=== PATIENT | male | born 1945 | race African-American/Black ===

== ENCOUNTER 2016-12-17 09:09 | Inpatient (IN) ==
[2016-12-17] MEDS ORDERED: ONDANSETRON 4 MG/2 ML VIAL IV STA (09:39)
[2016-12-17] MEDS ORDERED: SODIUM CHLORIDE 0.9% 500 ML IV STA (09:39)
[2016-12-17] MEDS ORDERED: NITROGLYCERIN 2% OINT 1 INCH/GM PACK TOP STA (09:39)
[2016-12-17] MEDS ORDERED: MORPHINE 2 MG/1 ML SYRINGE IV STA (09:39)
[2016-12-17] MEDS ORDERED: ALUM/MAG/SIMETH/LIDO VISC 1:1 30 ML BOTTLE PO STA (09:39)
[2016-12-17] MEDS ORDERED: METOPROLOL TARTRATE 25 MG TABLET PO STA (09:39)
[2016-12-17 10:05] LABS: Basophils % 0.4 % (0.0-0.8); Eosinophils # 0.2 10*3/uL (0.0-0.87); Eosinophils % 2.5 % (0.00-10.9); Hematocrit 19.5 VOL% (42.0-52.0); Immature Granulocytes % 0.4 %; Immature Granulocytes Absolute 0.03 #; Lymphocytes # 1.1 10*3/uL (1.4-4.0); Lymphocytes % 16.6 % (21.2-54.2); Mean Corpuscular HGB Conc 28.2 GM/DL (32-36); Mean Corpuscular Hemoglobin 19 PG (27-34); Mean Corpuscular Volume 65.7 FL (87-102); Mean Platelet Volume 10.4 FL (9.6-12.0); Monocytes # 0.6 10*3/uL (0.11-0.8); Neutrophils # 4.7 10*3/uL (1.4-7.4); Neutrophils % 71.1 % (38.7-73.9); Platelet Count 244 T/CUMM (130-400); Red Blood Count 2.97 MC/CUMM (3.8-5.5); Red Cell Distribution Width 17.1 % (9.3-17.3); White Blood Count 6.7 T/CUMM (4-12)
[2016-12-17 10:10] LABS: Hemoglobin 5.5 GM/DL (14.0-18.0)
[2016-12-17] MEDS ORDERED: PANTOPRAZOLE 40 MG VIAL IV STA (10:11)
[2016-12-17 10:16] LABS: PT Patient Result 10.7 SECS
[2016-12-17 10:27] LABS: Anisocytosis 3+; Poikilocytosis 2+
[2016-12-17] MEDS ORDERED: MORPHINE 2 MG/1 ML SYRINGE ONE (10:27)
[2016-12-17] MEDS ORDERED: PANTOPRAZOLE 40 MG VIAL IV ONE (10:27)
[2016-12-17] MEDS ORDERED: ONDANSETRON 4 MG/2 ML VIAL ONE (10:27)
[2016-12-17 10:28] LABS: Hypochromasia 3+
[2016-12-17] MEDS ORDERED: ALUM/MAG/SIMETH/LIDO VISC 1:1 30 ML BOTTLE PO ONE (10:28)
[2016-12-17 10:29] LABS: Ovalocytes 2+; Polychromasia Slight
[2016-12-17 10:40] LABS: Albumin 3.3 G/DL (3.4-5.0); Bilirubin,Total 0.4 MG/DL (0.2-1.0); Calcium 8.9 MG/DL (8.5-10.1); Magnesium 2.1 MG/DL (1.8-2.4); Osmolality,Calculated 277.7 MOS/KG (273-304); Potassium 3.1 MMOL/L (3.5-5.1); Total Protein 7.5 G/DL (6.4-8.3)
[2016-12-17] MEDS ORDERED: POTASSIUM CHLORIDE 20 MEQ TABLET PO STA (10:52)
[2016-12-17 10:54] LABS: Apearance,Urine Slightly Hazy (Clear); Bilirubin,Urine Negative (Negative); Blood, Urine Negative (Negative); Glucose,Urine (UA) Negative (Negative); Hyaline Casts,Urine 2 /LPF (0-3); Ketones,Urine Negative (Negative); Mucus,Urine Occasional /LPF (Occasional); Nitrite,Urine Negative (Negative); Protein,Urine Negative; RBC,Urine <1 /HPF (0-4); Squamous Epithelial Cell,Urine Occasional /HPF (0-10); Urine Color Yellow (Yellow); Urine Specific Gravity 1.014 (1.001-1.035); Urine Urobilinogen < 2.0 EU/DL (0.2-1.0); WBC,Urine 1 /HPF (0-6)
[2016-12-17] MEDS ORDERED: POTASSIUM CHLORIDE 20 MEQ TABLET PO ONE (11:41)
[2016-12-17] MEDS ORDERED: SODIUM CHLORIDE 0.9% 250 ML IV PRN (13:30)
[2016-12-17] MEDS ORDERED: DEXTROSE 50% 25 GM/50 ML VIAL IV PRN (14:44)
[2016-12-17] MEDS ORDERED: GLUCAGON 1 MG VIAL IM PRN (14:44)
[2016-12-17 15:02] LABS: Hemoglobin 5.3 GM/DL (14.0-18.0)
[2016-12-17] MEDS: SODIUM CHLORIDE 0.9% 1,000 ML IV SCH (15:20)
[2016-12-17] MEDS: POTASSIUM CHLORIDE 20 MEQ TABLET PO PRN ×2 (15:35→18:03)
[2016-12-17] MEDS: INSULIN REGULAR 100 UNIT/ML SUBCUT SCH ×2 (16:04→21:24)
[2016-12-17 16:57] LABS: Risk Ratio 2.57; VLDL CHOLESTEROL 14.6 MG/DL
[2016-12-17] MEDS: PANTOPRAZOLE INJ 200 MG in SODIUM CHLORIDE 0.9% 250 ML IV SCH (17:34)
[2016-12-17 20:01] LABS: Hematocrit 20.4 VOL% (42.0-52.0)
[2016-12-17 20:02] LABS: Hemoglobin 5.9 GM/DL (14.0-18.0)
[2016-12-17] MEDS: AMITRIPTYLINE 25 MG TABLET PO SCH (22:50)
[2016-12-17] MEDS: DONEPEZIL 5 MG TABLET PO SCH (22:51)
[2016-12-18 00:49] LABS: Basophils % 0.3 % (0.0-0.8); Eosinophils # 0.2 10*3/uL (0.0-0.87); Eosinophils % 2.7 % (0.00-10.9); Hematocrit 21.7 VOL% (42.0-52.0); Hemoglobin 6.6 GM/DL (14.0-18.0); Immature Granulocytes % 0.2 %; Immature Granulocytes Absolute 0.01 #; Lymphocytes # 1.6 10*3/uL (1.4-4.0); Lymphocytes % 26.2 % (21.2-54.2); Mean Corpuscular HGB Conc 30.4 GM/DL (32-36); Mean Corpuscular Hemoglobin 22 PG (27-34); Mean Corpuscular Volume 70.7 FL (87-102); Mean Platelet Volume 10.4 FL (9.6-12.0); Monocytes # 0.7 10*3/uL (0.11-0.8); Monocytes % 10.8 % (1.7-12.7); Neutrophils # 3.6 10*3/uL (1.4-7.4); Neutrophils % 59.8 % (38.7-73.9); Platelet Count 195 T/CUMM (130-400); Red Blood Count 3.07 MC/CUMM (3.8-5.5); Red Cell Distribution Width 22.3 % (9.3-17.3)
[2016-12-18 00:58] LABS: PT Patient Result 10.7 SECS
[2016-12-18 01:11] LABS: Calcium 8.1 MG/DL (8.5-10.1); Osmolality,Calculated 278.4 MOS/KG (273-304); Potassium 3.8 MMOL/L (3.5-5.1)
[2016-12-18] MEDS ORDERED: SODIUM CHLORIDE 0.9% 250 ML IV PRN ×2 (07:45→08:34)
[2016-12-18] MEDS ORDERED: FUROSEMIDE 20 MG/2 ML VIAL IV PRN (08:34)
[2016-12-18] MEDS: INSULIN REGULAR 100 UNIT/ML SUBCUT SCH ×4 (09:49→21:05)
[2016-12-18] MEDS: amLODIPine 5 MG TABLET PO SCH (10:45)
[2016-12-18] MEDS: LOSARTAN/HCTZ 50-12.5 MG TABLET PO SCH (10:45)
[2016-12-18] MEDS: LATANOPROST 0.005% OPH SOLN 2.5 ML BOTTLE BOTH EYES SCH (10:45)
[2016-12-18] MEDS: oxyCODONE/ACETAMINOPHEN 5-325 MG TABLET PO PRN (16:20)
[2016-12-18] MEDS: PANTOPRAZOLE INJ 200 MG in SODIUM CHLORIDE 0.9% 250 ML IV SCH (18:48)
[2016-12-18] MEDS: DONEPEZIL 5 MG TABLET PO SCH (21:03)
[2016-12-18] MEDS: AMITRIPTYLINE 25 MG TABLET PO SCH (21:04)
[2016-12-18 21:23] LABS: Hematocrit 28.7 VOL% (42.0-52.0); Hemoglobin 9.1 GM/DL (14.0-18.0)
[2016-12-18] MEDS: SODIUM CHLORIDE 0.9% 1,000 ML IV SCH (22:15)
[2016-12-19 04:03] LABS: Basophils % 0.6 % (0.0-0.8); Eosinophils # 0.2 10*3/uL (0.0-0.87); Eosinophils % 3.8 % (0.00-10.9); Hematocrit 28.4 VOL% (42.0-52.0); Immature Granulocytes % 0.6 %; Immature Granulocytes Absolute 0.04 #; Lymphocytes # 1.2 10*3/uL (1.4-4.0); Lymphocytes % 19.3 % (21.2-54.2); Mean Corpuscular HGB Conc 31.7 GM/DL (32-36); Mean Corpuscular Hemoglobin 23 PG (27-34); Mean Corpuscular Volume 72.1 FL (87-102); Mean Platelet Volume 10.4 FL (9.6-12.0); Monocytes # 0.8 10*3/uL (0.11-0.8); Monocytes % 12.7 % (1.7-12.7); Platelet Count 184 T/CUMM (130-400); Red Blood Count 3.94 MC/CUMM (3.8-5.5); Red Cell Distribution Width 21.7 % (9.3-17.3); White Blood Count 6.4 T/CUMM (4-12)
[2016-12-19 04:05] LABS: INR 1.1; PT Patient Result 11.3 SECS
[2016-12-19 04:24] LABS: Calcium 8.5 MG/DL (8.5-10.1); Osmolality,Calculated 276.4 MOS/KG (273-304); Potassium 3.4 MMOL/L (3.5-5.1)
[2016-12-19] MEDS ORDERED: LIDOCAINE 2% 5 ML VIAL ONE (09:00)
[2016-12-19] MEDS ORDERED: PROPOFOL 200 MG/20 ML VIAL IV ONE (09:00)
[2016-12-19] MEDS: INSULIN REGULAR 100 UNIT/ML SUBCUT SCH ×4 (09:07→21:02)
[2016-12-19] MEDS: LATANOPROST 0.005% OPH SOLN 2.5 ML BOTTLE BOTH EYES SCH (09:07)
[2016-12-19] MEDS: amLODIPine 5 MG TABLET PO SCH (09:07)
[2016-12-19] MEDS: LOSARTAN/HCTZ 50-12.5 MG TABLET PO SCH (09:07)
[2016-12-19] MEDS: SODIUM CHLORIDE 0.9% 1,000 ML IV SCH ×3 (09:11→22:28)
[2016-12-19] MEDS: oxyCODONE/ACETAMINOPHEN 5-325 MG TABLET PO PRN ×2 (14:38→21:01)
[2016-12-19] MEDS: PANTOPRAZOLE INJ 200 MG in SODIUM CHLORIDE 0.9% 250 ML IV SCH (16:40)
[2016-12-19] MEDS ORDERED: ASPIRIN CHEW 81 MG TABLET PO ONE (16:55)
[2016-12-19] MEDS ORDERED: POTASSIUM CHLORIDE 20 MEQ PACK PO ONE (17:01)
[2016-12-19] MEDS: HYOSCYAMINE 0.125 MG TABLET SL SCH ×2 (18:16→21:01)
[2016-12-19] MEDS: CARVEDILOL 3.125 MG TABLET PO SCH ×2 (18:16→21:01)
[2016-12-19] MEDS: POTASSIUM CHLORIDE 20 MEQ TABLET PO PRN (18:16)
[2016-12-19] MEDS: AMITRIPTYLINE 25 MG TABLET PO SCH (21:01)
[2016-12-19] MEDS: DONEPEZIL 5 MG TABLET PO SCH (21:01)
[2016-12-19] MEDS: ROSUVASTATIN 10 MG TABLET PO SCH (21:01)
[2016-12-20] MEDS: PANTOPRAZOLE INJ 200 MG in SODIUM CHLORIDE 0.9% 250 ML IV SCH (06:07)
[2016-12-20] MEDS: LATANOPROST 0.005% OPH SOLN 2.5 ML BOTTLE BOTH EYES SCH (08:50)
[2016-12-20] MEDS: LOSARTAN/HCTZ 50-12.5 MG TABLET PO SCH (08:51)
[2016-12-20] MEDS: oxyCODONE/ACETAMINOPHEN 5-325 MG TABLET PO PRN ×2 (08:52→15:19)
[2016-12-20] MEDS: HYOSCYAMINE 0.125 MG TABLET SL SCH ×2 (08:52→21:05)
[2016-12-20] MEDS: BISACODYL 5 MG TABLET PO SCH ×2 (08:52→16:32)
[2016-12-20] MEDS: amLODIPine 5 MG TABLET PO SCH (08:53)
[2016-12-20] MEDS: CARVEDILOL 3.125 MG TABLET PO SCH ×2 (08:54→21:05)
[2016-12-20] MEDS: ASPIRIN EC 81 MG TABLET PO SCH (08:54)
[2016-12-20] MEDS: INSULIN REGULAR 100 UNIT/ML SUBCUT SCH ×4 (08:55→21:12)
[2016-12-20] MEDS ORDERED: POLYETHYLENE GLYCOL POWDER 255 GM BOTTLE PO ONE (16:00)
[2016-12-20] MEDS ORDERED: MAGNESIUM CITRATE 300 ML BOTTLE PO ONE (21:00)
[2016-12-20] MEDS: AMITRIPTYLINE 25 MG TABLET PO SCH (21:05)
[2016-12-20] MEDS: DONEPEZIL 5 MG TABLET PO SCH (21:05)
[2016-12-20] MEDS: ROSUVASTATIN 10 MG TABLET PO SCH (21:06)
[2016-12-20] MEDS: PANTOPRAZOLE 40 MG VIAL IV SCH (21:11)
[2016-12-21] MEDS: SODIUM CHLORIDE 0.9% 1,000 ML IV SCH ×3 (00:56→23:27)
[2016-12-21] MEDS: BISACODYL 5 MG TABLET PO SCH (00:57)
[2016-12-21 07:12] LABS: Basophils # 0.1 10*3/uL (0.0-0.2); Basophils % 0.8 % (0.0-0.8); Eosinophils # 0.4 10*3/uL (0.0-0.87); Eosinophils % 6.7 % (0.00-10.9); Hematocrit 31.8 VOL% (42.0-52.0); Hemoglobin 9.9 GM/DL (14.0-18.0); Immature Granulocytes % 0.2 %; Immature Granulocytes Absolute 0.01 #; Lymphocytes # 1.2 10*3/uL (1.4-4.0); Lymphocytes % 18.8 % (21.2-54.2); Mean Corpuscular HGB Conc 31.1 GM/DL (32-36); Mean Corpuscular Hemoglobin 23 PG (27-34); Mean Corpuscular Volume 72.9 FL (87-102); Mean Platelet Volume 10.8 FL (9.6-12.0); Monocytes # 0.8 10*3/uL (0.11-0.8); Monocytes % 12.2 % (1.7-12.7); Neutrophils # 3.8 10*3/uL (1.4-7.4); Neutrophils % 61.3 % (38.7-73.9); Platelet Count 170 T/CUMM (130-400); Red Blood Count 4.36 MC/CUMM (3.8-5.5); Red Cell Distribution Width 22.5 % (9.3-17.3); White Blood Count 6.1 T/CUMM (4-12)
[2016-12-21 07:47] LABS: Albumin 3.2 G/DL (3.4-5.0); Calcium 8.8 MG/DL (8.5-10.1); Osmolality,Calculated 277.3 MOS/KG (273-304); Potassium 3.4 MMOL/L (3.5-5.1); Total Protein 7.1 G/DL (6.4-8.3)
[2016-12-21] MEDS ORDERED: DEXTROSE 50% 25 GM/50 ML VIAL IV ONE (07:59)
[2016-12-21] MEDS: INSULIN REGULAR 100 UNIT/ML SUBCUT SCH ×4 (10:08→23:16)
[2016-12-21] MEDS: HYOSCYAMINE 0.125 MG TABLET SL SCH ×2 (10:18→23:14)
[2016-12-21] MEDS: ASPIRIN EC 81 MG TABLET PO SCH (10:18)
[2016-12-21] MEDS: PANTOPRAZOLE 40 MG VIAL IV SCH ×2 (10:18→23:16)
[2016-12-21] MEDS: LOSARTAN/HCTZ 50-12.5 MG TABLET PO SCH ×2 (10:18→10:24)
[2016-12-21] MEDS: CARVEDILOL 3.125 MG TABLET PO SCH ×2 (10:18→23:15)
[2016-12-21] MEDS: amLODIPine 5 MG TABLET PO SCH (10:18)
[2016-12-21] MEDS: LATANOPROST 0.005% OPH SOLN 2.5 ML BOTTLE BOTH EYES SCH (10:19)
[2016-12-21] MEDS: oxyCODONE/ACETAMINOPHEN 5-325 MG TABLET PO PRN ×3 (10:37→23:21)
[2016-12-21] MEDS ORDERED: TRIAMTERENE/HCTZ 37.5-25 MG CAPSULE PO SCH (11:00)
[2016-12-21] MEDS: ROSUVASTATIN 10 MG TABLET PO SCH (23:12)
[2016-12-21] MEDS: DONEPEZIL 5 MG TABLET PO SCH (23:12)
[2016-12-21] MEDS: AMITRIPTYLINE 25 MG TABLET PO SCH (23:15)
[2016-12-22] MEDS: INSULIN REGULAR 100 UNIT/ML SUBCUT SCH ×4 (08:17→21:32)
[2016-12-22] MEDS: oxyCODONE/ACETAMINOPHEN 5-325 MG TABLET PO PRN ×2 (13:43→20:04)
[2016-12-22] MEDS: LOSARTAN/HCTZ 50-12.5 MG TABLET PO SCH (13:43)
[2016-12-22] MEDS: HYOSCYAMINE 0.125 MG TABLET SL SCH ×2 (13:44→20:05)
[2016-12-22] MEDS: amLODIPine 5 MG TABLET PO SCH (13:44)
[2016-12-22] MEDS: CARVEDILOL 3.125 MG TABLET PO SCH ×2 (13:44→20:05)
[2016-12-22] MEDS: LATANOPROST 0.005% OPH SOLN 2.5 ML BOTTLE BOTH EYES SCH (13:44)
[2016-12-22] MEDS: ASPIRIN EC 81 MG TABLET PO SCH (13:44)
[2016-12-22] MEDS: PANTOPRAZOLE 40 MG VIAL IV SCH ×2 (13:44→20:06)
[2016-12-22] MEDS: SODIUM CHLORIDE 0.9% 1,000 ML IV SCH (19:08)
[2016-12-22] MEDS: DONEPEZIL 5 MG TABLET PO SCH (20:05)
[2016-12-22] MEDS: AMITRIPTYLINE 25 MG TABLET PO SCH (20:05)
[2016-12-22] MEDS: ROSUVASTATIN 20 MG TABLET PO SCH (21:38)
[2016-12-23 06:59] LABS: Basophils % 0.5 % (0.0-0.8); Eosinophils # 0.5 10*3/uL (0.0-0.87); Eosinophils % 5.8 % (0.00-10.9); Hematocrit 29.5 VOL% (42.0-52.0); Hemoglobin 9.2 GM/DL (14.0-18.0); Immature Granulocytes % 0.4 %; Immature Granulocytes Absolute 0.03 #; Lymphocytes # 1.3 10*3/uL (1.4-4.0); Lymphocytes % 16.3 % (21.2-54.2); Mean Corpuscular HGB Conc 31.2 GM/DL (32-36); Mean Corpuscular Hemoglobin 23 PG (27-34); Mean Corpuscular Volume 72.7 FL (87-102); Mean Platelet Volume 10.6 FL (9.6-12.0); Monocytes # 0.9 10*3/uL (0.11-0.8); Monocytes % 11.8 % (1.7-12.7); Neutrophils # 5.1 10*3/uL (1.4-7.4); Neutrophils % 65.2 % (38.7-73.9); Platelet Count 162 T/CUMM (130-400); Red Blood Count 4.06 MC/CUMM (3.8-5.5); Red Cell Distribution Width 22.5 % (9.3-17.3); White Blood Count 7.9 T/CUMM (4-12)
[2016-12-23 07:21] LABS: Giant Platelets Few; Hypochromasia 1+; Microcytosis Slight; Platelet Estimate Normal
[2016-12-23 07:27] LABS: Calcium 8.1 MG/DL (8.5-10.1); Magnesium 1.8 MG/DL (1.8-2.4); Osmolality,Calculated 274.5 MOS/KG (273-304); Potassium 3.3 MMOL/L (3.5-5.1)
[2016-12-23] MEDS: INSULIN REGULAR 100 UNIT/ML SUBCUT SCH ×4 (09:18→21:22)
[2016-12-23] MEDS: ASPIRIN EC 81 MG TABLET PO SCH (09:18)
[2016-12-23] MEDS: SODIUM CHLORIDE 0.9% 1,000 ML IV SCH (09:19)
[2016-12-23] MEDS: LOSARTAN/HCTZ 50-12.5 MG TABLET PO SCH (09:19)
[2016-12-23] MEDS: CARVEDILOL 3.125 MG TABLET PO SCH ×2 (09:20→21:21)
[2016-12-23] MEDS: amLODIPine 5 MG TABLET PO SCH (09:21)
[2016-12-23] MEDS: PANTOPRAZOLE 40 MG VIAL IV SCH ×2 (09:22→21:22)
[2016-12-23] MEDS: LATANOPROST 0.005% OPH SOLN 2.5 ML BOTTLE BOTH EYES SCH (09:26)
[2016-12-23] MEDS: HYOSCYAMINE 0.125 MG TABLET SL SCH ×2 (09:27→21:21)
[2016-12-23] MEDS ORDERED: LIDOCAINE 1%/EPI INJ 20 ML VIAL ONE (13:48)
[2016-12-23] MEDS ORDERED: BUPIVACAINE 0.25% 50 ML VIAL ONE (13:48)
[2016-12-23] MEDS ORDERED: LIDOCAINE 1% 5 ML VIAL ONE (15:25)
[2016-12-23] MEDS ORDERED: GLYCOPYRROLATE 0.4 MG/2 ML VIAL ONE (15:25)
[2016-12-23] MEDS ORDERED: NEOSTIGMINE 10 MG/10 ML VIAL ONE (15:25)
[2016-12-23] MEDS ORDERED: ROCURONIUM 100 MG/10 ML VIAL IV ONE (15:25)
[2016-12-23] MEDS ORDERED: SUCCINYLCHOLINE 200 MG/10 ML VIAL ONE (15:25)
[2016-12-23] MEDS ORDERED: PHENYLEPHRINE 1 MG/10 ML SYRINGE IV ONE (15:25)
[2016-12-23] MEDS ORDERED: PROPOFOL 200 MG/20 ML VIAL IV ONE (15:25)
[2016-12-23] MEDS ORDERED: ROPIVACAINE 0.5% 30 ML VIAL ONE (16:36)
[2016-12-23] MEDS ORDERED: ONDANSETRON 4 MG/2 ML VIAL IV PRN ×2 (17:04→18:04)
[2016-12-23] MEDS ORDERED: EPINEPHrine 1 MG/ML VIAL ONE (17:21)
[2016-12-23] MEDS ORDERED: fentaNYL 100 MCG/2 ML VIAL ONE (17:31)
[2016-12-23] MEDS ORDERED: LACTATED RINGERS 1,000 ML IV ONE (17:31)
[2016-12-23] MEDS ORDERED: SEVOFLURANE 1 UNIT/15 MINUTE INH ONE (17:31)
[2016-12-23] MEDS ORDERED: MIDAZOLAM 2 MG/2 ML VIAL ONE (17:31)
[2016-12-23] MEDS ORDERED: ACETAMINOPHEN 1,000 MG/100 ML VIAL IV ONE (17:31)
[2016-12-23] MEDS ORDERED: ONDANSETRON 4 MG/2 ML VIAL ONE (17:47)
[2016-12-23] MEDS ORDERED: HYDROmorphone 2 MG/1 ML VIAL ONE (17:47)
[2016-12-23] MEDS ORDERED: ePHEDrine 50 MG/ML AMP ONE (17:50)
[2016-12-23] MEDS: HYDROmorphone 2 MG/1 ML VIAL IV PRN ×3 (17:50→18:10)
[2016-12-23] MEDS ORDERED: BUPIVACAINE 0.5% 50 ML VIAL ONE (18:11)
[2016-12-23 18:55] LABS: Apearance,Urine CLEAR (Clear); Bilirubin,Urine Negative (Negative); Blood, Urine Negative (Negative); Glucose,Urine (UA) Negative (Negative); Ketones,Urine Negative (Negative); Nitrite,Urine Negative (Negative); Protein,Urine Negative; RBC,Urine 1 /HPF (0-4); Urine Color Colorless (Yellow); Urine Specific Gravity 1.004 (1.001-1.035); Urine Urobilinogen < 2.0 EU/DL (0.2-1.0); WBC,Urine 1 /HPF (0-6)
[2016-12-23 19:42] LABS: Hematocrit 32.3 VOL% (42.0-52.0); Hemoglobin 10.1 GM/DL (14.0-18.0)
[2016-12-23] MEDS: ROSUVASTATIN 20 MG TABLET PO SCH (21:21)
[2016-12-23] MEDS: DONEPEZIL 5 MG TABLET PO SCH (21:21)
[2016-12-23] MEDS: AMITRIPTYLINE 25 MG TABLET PO SCH (21:21)
[2016-12-23] MEDS: MORPHINE 2 MG/1 ML SYRINGE IV PRN ×2 (21:24→23:10)
[2016-12-23] MEDS: DEXTROSE 5% NACL 0.45% 1,000 ML IV SCH (21:29)
[2016-12-23] MEDS: oxyCODONE/ACETAMINOPHEN 5-325 MG TABLET PO PRN (22:17)
[2016-12-24] MEDS: MORPHINE 2 MG/1 ML SYRINGE IV PRN ×2 (01:19→04:59)
[2016-12-24] MEDS: oxyCODONE/ACETAMINOPHEN 5-325 MG TABLET PO PRN ×3 (01:40→21:14)
[2016-12-24 02:26] LABS: Calcium 8.1 MG/DL (8.5-10.1); Magnesium 1.6 MG/DL (1.8-2.4); Potassium 3.4 MMOL/L (3.5-5.1)
[2016-12-24 02:39] LABS: Basophils % 0.3 % (0.0-0.8); Eosinophils # 0.1 10*3/uL (0.0-0.87); Eosinophils % 1.2 % (0.00-10.9); Hematocrit 29.4 VOL% (42.0-52.0); Hemoglobin 9.2 GM/DL (14.0-18.0); Immature Granulocytes % 0.4 %; Immature Granulocytes Absolute 0.05 #; Lymphocytes # 0.9 10*3/uL (1.4-4.0); Lymphocytes % 7.6 % (21.2-54.2); Mean Corpuscular HGB Conc 31.3 GM/DL (32-36); Mean Corpuscular Hemoglobin 23 PG (27-34); Mean Corpuscular Volume 72.8 FL (87-102); Mean Platelet Volume 11.2 FL (9.6-12.0); Monocytes # 0.7 10*3/uL (0.11-0.8); Monocytes % 6.4 % (1.7-12.7); Neutrophils # 9.5 10*3/uL (1.4-7.4); Neutrophils % 84.1 % (38.7-73.9); Platelet Count 175 T/CUMM (130-400); Red Blood Count 4.04 MC/CUMM (3.8-5.5); Red Cell Distribution Width 22.5 % (9.3-17.3); White Blood Count 11.3 T/CUMM (4-12)
[2016-12-24] MEDS: POTASSIUM CHLORIDE 20 MEQ TABLET PO PRN ×3 (03:06→06:42)
[2016-12-24] MEDS: DEXTROSE 5% NACL 0.45% 1,000 ML IV SCH ×2 (03:53→08:45)
[2016-12-24] MEDS ORDERED: MAGNESIUM SULF RIDER 4 GM in PREMIX 1 EACH IV PRN (06:26)
[2016-12-24] MEDS ORDERED: MAGNESIUM SULF RIDER 2 GM in PREMIX 1 EACH IV PRN (06:26)
[2016-12-24] MEDS: HYDROmorphone 2 MG/1 ML VIAL IV PRN ×5 (06:39→19:43)
[2016-12-24] MEDS ORDERED: MAGNESIUM SULF INJ 3 GM in SODIUM CHLORIDE 0.9% 100 ML IV ONE (08:00)
[2016-12-24] MEDS: INSULIN REGULAR 100 UNIT/ML SUBCUT SCH ×4 (08:44→21:06)
[2016-12-24] MEDS: PANTOPRAZOLE 40 MG VIAL IV SCH ×2 (08:45→21:17)
[2016-12-24] MEDS: HYOSCYAMINE 0.125 MG TABLET SL SCH ×2 (08:46→21:14)
[2016-12-24] MEDS: LOSARTAN/HCTZ 50-12.5 MG TABLET PO SCH (08:46)
[2016-12-24] MEDS: LATANOPROST 0.005% OPH SOLN 2.5 ML BOTTLE BOTH EYES SCH (08:46)
[2016-12-24] MEDS: ASPIRIN EC 81 MG TABLET PO SCH (08:46)
[2016-12-24] MEDS: CARVEDILOL 3.125 MG TABLET PO SCH ×2 (08:46→21:14)
[2016-12-24] MEDS: amLODIPine 5 MG TABLET PO SCH (08:46)
[2016-12-24 09:10] LABS: Hematocrit 29.2 VOL% (42.0-52.0); Hemoglobin 9.2 GM/DL (14.0-18.0)
[2016-12-24] MEDS: ENOXAPARIN 40 MG/0.4 ML SYRINGE SUBCUT SCH (11:12)
[2016-12-24] MEDS: SODIUM CHLORIDE 0.45% 1,000 ML IV SCH (11:20)
[2016-12-24] MEDS: ROSUVASTATIN 20 MG TABLET PO SCH (21:14)
[2016-12-24] MEDS: AMITRIPTYLINE 25 MG TABLET PO SCH (21:14)
[2016-12-24] MEDS: DONEPEZIL 5 MG TABLET PO SCH (21:14)
[2016-12-25] MEDS: SODIUM CHLORIDE 0.45% 1,000 ML IV SCH ×2 (00:40→14:30)
[2016-12-25] MEDS: oxyCODONE/ACETAMINOPHEN 5-325 MG TABLET PO PRN ×4 (02:33→21:00)
[2016-12-25 05:04] LABS: Basophils % 0.3 % (0.0-0.8); Eosinophils # 0.3 10*3/uL (0.0-0.87); Eosinophils % 2.8 % (0.00-10.9); Hematocrit 30.8 VOL% (42.0-52.0); Hemoglobin 9.5 GM/DL (14.0-18.0); Immature Granulocytes % 0.4 %; Immature Granulocytes Absolute 0.04 #; Lymphocytes # 1.1 10*3/uL (1.4-4.0); Mean Corpuscular HGB Conc 30.8 GM/DL (32-36); Mean Corpuscular Hemoglobin 23 PG (27-34); Mean Corpuscular Volume 73.3 FL (87-102); Mean Platelet Volume 10.4 FL (9.6-12.0); Monocytes # 0.8 10*3/uL (0.11-0.8); Monocytes % 7.6 % (1.7-12.7); Neutrophils # 8.6 10*3/uL (1.4-7.4); Neutrophils % 78.9 % (38.7-73.9); Platelet Count 208 T/CUMM (130-400); White Blood Count 10.9 T/CUMM (4-12)
[2016-12-25 05:25] LABS: Calcium 8.7 MG/DL (8.5-10.1); Osmolality,Calculated 264.4 MOS/KG (273-304)
[2016-12-25 05:31] LABS: Troponin I Only < 0.015 NG/ML (0.00-0.045)
[2016-12-25] MEDS: HYDROmorphone 2 MG/1 ML VIAL IV PRN ×3 (06:50→17:28)
[2016-12-25 06:52] LABS: Hypochromasia 2+; Microcytosis 1+; Polychromasia Slight; Target Cells Slight
[2016-12-25] MEDS: INSULIN REGULAR 100 UNIT/ML SUBCUT SCH ×4 (10:30→22:17)
[2016-12-25] MEDS: ASPIRIN EC 81 MG TABLET PO SCH (10:31)
[2016-12-25] MEDS: CARVEDILOL 3.125 MG TABLET PO SCH ×2 (10:31→21:00)
[2016-12-25] MEDS: LOSARTAN/HCTZ 50-12.5 MG TABLET PO SCH (10:31)
[2016-12-25] MEDS: amLODIPine 5 MG TABLET PO SCH (10:32)
[2016-12-25] MEDS: PANTOPRAZOLE 40 MG VIAL IV SCH ×2 (10:32→21:03)
[2016-12-25] MEDS: HYOSCYAMINE 0.125 MG TABLET SL SCH ×2 (10:32→20:59)
[2016-12-25] MEDS: LATANOPROST 0.005% OPH SOLN 2.5 ML BOTTLE BOTH EYES SCH (10:34)
[2016-12-25] MEDS: ENOXAPARIN 40 MG/0.4 ML SYRINGE SUBCUT SCH (10:34)
[2016-12-25] MEDS: AMITRIPTYLINE 25 MG TABLET PO SCH (20:59)
[2016-12-25] MEDS: DONEPEZIL 5 MG TABLET PO SCH (20:59)
[2016-12-25] MEDS: ROSUVASTATIN 20 MG TABLET PO SCH (20:59)
[2016-12-25] MEDS: DOCUSATE SODIUM 100 MG CAPSULE PO SCH (21:00)
[2016-12-26] MEDS: oxyCODONE/ACETAMINOPHEN 5-325 MG TABLET PO PRN (02:36)
[2016-12-26] MEDS: HYDROmorphone 2 MG/1 ML VIAL IV PRN ×5 (02:37→21:39)
[2016-12-26] MEDS: SODIUM CHLORIDE 0.45% 1,000 ML IV SCH (02:38)
[2016-12-26] MEDS: INSULIN REGULAR 100 UNIT/ML SUBCUT SCH ×4 (07:46→21:39)
[2016-12-26] MEDS: PANTOPRAZOLE 40 MG VIAL IV SCH ×2 (08:40→21:12)
[2016-12-26] MEDS: DOCUSATE SODIUM 100 MG CAPSULE PO SCH ×2 (08:41→21:11)
[2016-12-26] MEDS: HYOSCYAMINE 0.125 MG TABLET SL SCH ×2 (08:41→21:11)
[2016-12-26] MEDS: LOSARTAN/HCTZ 50-12.5 MG TABLET PO SCH (08:41)
[2016-12-26] MEDS: CARVEDILOL 3.125 MG TABLET PO SCH ×2 (08:42→21:10)
[2016-12-26] MEDS: ENOXAPARIN 40 MG/0.4 ML SYRINGE SUBCUT SCH ×2 (08:42→12:24)
[2016-12-26] MEDS: amLODIPine 5 MG TABLET PO SCH (08:42)
[2016-12-26] MEDS: ASPIRIN EC 81 MG TABLET PO SCH (08:42)
[2016-12-26] MEDS: LATANOPROST 0.005% OPH SOLN 2.5 ML BOTTLE BOTH EYES SCH (18:32)
[2016-12-26] MEDS: AMITRIPTYLINE 25 MG TABLET PO SCH (21:10)
[2016-12-26] MEDS: DONEPEZIL 5 MG TABLET PO SCH (21:10)
[2016-12-26] MEDS: ROSUVASTATIN 20 MG TABLET PO SCH (21:11)
[2016-12-27] MEDS: HYDROmorphone 2 MG/1 ML VIAL IV PRN ×2 (04:42→20:26)
[2016-12-27] MEDS: INSULIN REGULAR 100 UNIT/ML SUBCUT SCH ×4 (07:59→20:21)
[2016-12-27] MEDS: LOSARTAN/HCTZ 50-12.5 MG TABLET PO SCH (09:01)
[2016-12-27] MEDS: HYOSCYAMINE 0.125 MG TABLET SL SCH ×2 (09:01→20:21)
[2016-12-27] MEDS: DOCUSATE SODIUM 100 MG CAPSULE PO SCH ×2 (09:02→20:21)
[2016-12-27] MEDS: CARVEDILOL 3.125 MG TABLET PO SCH ×2 (09:02→20:21)
[2016-12-27] MEDS: ENOXAPARIN 40 MG/0.4 ML SYRINGE SUBCUT SCH ×2 (09:02→13:51)
[2016-12-27] MEDS: amLODIPine 5 MG TABLET PO SCH (09:02)
[2016-12-27] MEDS: ASPIRIN EC 81 MG TABLET PO SCH (09:02)
[2016-12-27] MEDS: PANTOPRAZOLE 40 MG VIAL IV SCH ×2 (09:03→20:23)
[2016-12-27] MEDS: LATANOPROST 0.005% OPH SOLN 2.5 ML BOTTLE BOTH EYES SCH (09:09)
[2016-12-27] MEDS: POLYETHYLENE GLYCOL POWDER 17 GM PACK PO SCH (13:49)
[2016-12-27] MEDS: AMITRIPTYLINE 25 MG TABLET PO SCH (20:21)
[2016-12-27] MEDS: ROSUVASTATIN 20 MG TABLET PO SCH (20:21)
[2016-12-27] MEDS: DONEPEZIL 5 MG TABLET PO SCH (20:43)
[2016-12-28] MEDS ORDERED: BISACODYL 10 MG SUPP RECTAL PRN (07:59)
[2016-12-28] MEDS: INSULIN REGULAR 100 UNIT/ML SUBCUT SCH ×5 (08:15→21:24)
[2016-12-28] MEDS: CARVEDILOL 3.125 MG TABLET PO SCH ×2 (08:36→21:20)
[2016-12-28] MEDS: ASPIRIN EC 81 MG TABLET PO SCH (08:36)
[2016-12-28] MEDS: DOCUSATE SODIUM 100 MG CAPSULE PO SCH ×2 (08:36→21:19)
[2016-12-28] MEDS: PANTOPRAZOLE 40 MG VIAL IV SCH ×2 (08:37→21:20)
[2016-12-28] MEDS: HYOSCYAMINE 0.125 MG TABLET SL SCH ×2 (08:37→21:18)
[2016-12-28] MEDS: LOSARTAN/HCTZ 50-12.5 MG TABLET PO SCH (08:37)
[2016-12-28] MEDS: POLYETHYLENE GLYCOL POWDER 17 GM PACK PO SCH (08:38)
[2016-12-28] MEDS: amLODIPine 5 MG TABLET PO SCH (08:41)
[2016-12-28] MEDS: LATANOPROST 0.005% OPH SOLN 2.5 ML BOTTLE BOTH EYES SCH (08:51)
[2016-12-28] MEDS: ENOXAPARIN 40 MG/0.4 ML SYRINGE SUBCUT SCH (12:49)
[2016-12-28] MEDS: ROSUVASTATIN 20 MG TABLET PO SCH (21:18)
[2016-12-28] MEDS: DONEPEZIL 5 MG TABLET PO SCH (21:20)
[2016-12-28] MEDS: AMITRIPTYLINE 25 MG TABLET PO SCH (21:21)
[2016-12-29] MEDS: INSULIN REGULAR 100 UNIT/ML SUBCUT SCH ×2 (08:55→11:51)
[2016-12-29] MEDS: HYOSCYAMINE 0.125 MG TABLET SL SCH (08:57)
[2016-12-29] MEDS: ASPIRIN EC 81 MG TABLET PO SCH (08:57)
[2016-12-29] MEDS: POLYETHYLENE GLYCOL POWDER 17 GM PACK PO SCH (08:57)
[2016-12-29] MEDS: DOCUSATE SODIUM 100 MG CAPSULE PO SCH (08:57)
[2016-12-29] MEDS: CARVEDILOL 3.125 MG TABLET PO SCH (08:57)
[2016-12-29] MEDS: PANTOPRAZOLE 40 MG VIAL IV SCH (08:57)
[2016-12-29] MEDS: LATANOPROST 0.005% OPH SOLN 2.5 ML BOTTLE BOTH EYES SCH (08:57)
[2016-12-29] MEDS: amLODIPine 5 MG TABLET PO SCH (08:57)
[2016-12-29] MEDS: LOSARTAN/HCTZ 50-12.5 MG TABLET PO SCH (08:57)
[2016-12-29] MEDS: ENOXAPARIN 40 MG/0.4 ML SYRINGE SUBCUT SCH (11:51)
[2016-12-30 08:30] VITALS: BP 110/72
== END 2016-12-29 12:30 | disposition home or self-care (01) | DRG 330 ==
LOC: N.ED 09:09 → N.EDINP 12:10 → SUATTDRO 12:10 → N.2E 13:49 → N.ICU 12-23 19:20 → N.4E 12-24 15:35
PROVIDERS: ADMIT Internal Medicine; ATTEND Hospitalist